=== PATIENT | female | born 1970 | race Caucasian/White ===

== ENCOUNTER 2017-07-24 11:20 | Emergency (ER) | payer BC ==
[2017-07-24 11:31] VITALS: BP 137/78
--- NOTE | 2017-07-24 11:44 | UC ---
Throat Pain/Nasal Marcus HPI - HPI Summary HPI Summary: Pt presents with sore throat and swollen glands since yesterday. She is going out of town in 3 days and wanted to make sure it's not strep. Denies sick contacts, fever, chills, cough, SOB, chest pain, abdominal pain, n/v/d/c. - History of Current Complaint Chief Complaint: UCRespiratory Stated Complaint: SORE THROAT Time Seen by Provider: 07/24/17 11:43 Hx Obtained From: Patient Hx Last Menstrual Period: 07/23 Onset/Duration: Sudden Onset Severity: Moderate Pain Intensity: 5 Pain Scale Used: 0-10 Numeric - Allergies/Home Medications Allergies/Adverse Reactions: Allergies Allergy/AdvReac Type Severity Reaction Status Date / Time Penicillins Allergy Rash Verified 07/24/17 11:32 PMH/Surg Hx/FS Hx/Imm Hx Endocrine History: Diabetes Cardiovascular History: Hypertension Psychological History: Anxiety, Depression - Surgical History Surgical History: Yes Surgery Procedure, Year, and Place: tubal ligation, tubal ablasion - Family History Known Family History: Positive: None - Social History Occupation: Employed Full-time Lives: With Family Alcohol Use: Occasionally Alcohol Amount: socially once a week Substance Use Type: None Smoking Status (MU): Light Every Day Tobacco Smoker Type: Cigarettes Amount Used/How Often: 1/2 PPD Have You Smoked in the Last Year: Yes Review of Systems Constitutional: Negative Skin: Negative Eyes: Negative ENT: Sore Throat Respiratory: Negative Cardiovascular: Negative Gastrointestinal: Negative Neurovascular: Negative Neurological: Negative Psychological: Negative All Other Systems Reviewed And Are Negative: Yes Physical Exam - Summary Physical Exam Summary: GENERAL: NAD. WDWN. No pain distress. SKIN: No rashes, sores, ulcers, masses, lesions. HEENT: Head: AT/NC Eyes: Conjunctiva clear without inflammation or discharge. Ears: Hearing grossly normal. TMs intact, no bulging, erythema, or edema. Nose: Nasal mucosa pink and moist. NTTP maxillary and frontal sinus. Throat: Posterior oropharynx moderate erythema and 2+ tonsillar enlargement. No exudates. Uvula midline. No hoarse voice or muffled voice. NECK: Supple. TTP anterior LAD CHEST: CTAB. No r/r/w. No accessory muscle use. Breathing comfortably and in no distress. CV: RRR. Without m/r/g. Pulses intact. Brisk cap refill. NEURO: Alert. CN II-XII grossly intact. PSYCH: Age appropriate behavior. Triage Information Reviewed: Yes Vital Signs: Initial Vital Signs Temp 98.2 F 07/24/17 11:28 Pulse 76 07/24/17 11:28 Resp 16 07/24/17 11:28 BP 137/78 07/24/17 11:28 Pulse Ox 100 07/24/17 11:28 Throat Pain/Nasal Course/Dx - Course Course Of Treatment: POC strep positive. Azithromycin. - Differential Dx/Diagnosis Provider Diagnoses: Strep pharyngitis Discharge - Sign-Out/Discharge Documenting (check all that apply): Discharge - Discharge Plan Condition: Stable Disposition: HOME Prescriptions: Azithromycin TAB* [Zithromax TAB (Z-MAGDA) 250 mg #6 tabs] 2 tab PO .TODAY, THEN 1 DAILY #1 magda Patient Education Materials: Strep Throat (DC) Forms: *Work Release Referrals: Roxann Gonzalez [employer] [Primary Care Provider] - Additional Instructions: If you develop a fever, shortness of breath, chest pain, new or worsening symptoms - please call your PCP or go to the ED. - Billing Disposition and Condition Condition: STABLE Disposition: HOME
== END 2017-07-24 12:00 | disposition home or self-care (01) ==
LOC: UCEAST 11:20
DX: J02.0 Streptococcal pharyngitis (principal); E11.9 Type 2 diabetes mellitus without complications; Z79.84 Long term (current) use of oral hypoglycemic drugs; I10 Essential (primary) hypertension; F41.9 Anxiety disorder, unspecified; F32.9 Major depressive disorder, single episode, unspecified; Z88.0 Allergy status to penicillin; F17.210 Nicotine dependence, cigarettes, uncomplicated
CPT/HCPCS: 87651; 99212; G0463

== ENCOUNTER 2017-08-19 16:10 | Emergency (ER) | payer BC ==
[2017-08-19 17:01] VITALS: BP 122/80
--- NOTE | 2017-08-19 17:10 | UC ---
Skin Complaint HPI - HPI Summary HPI Summary: 46 yo WF c/o generalized erythematous rash, nonpruritic, x few days. C/o dry skin and a new sugar scrub she used prior to breakout - History of Current Complaint Chief Complaint: UCRash Time Seen by Provider: 08/19/17 16:21 Stated Complaint: RASH Hx Obtained From: Patient Hx Last Menstrual Period: today ?: Yes Onset/Duration: Sudden Onset, Lasting Days Skin Exposure Onset/Duration: Days Ago Onset Severity: Moderate Current Severity: Moderate Pain Intensity: 0 - Allergy/Home Medications Allergies/Adverse Reactions: Allergies Allergy/AdvReac Type Severity Reaction Status Date / Time Penicillins Allergy Rash Verified 08/19/17 16:27 Home Medications: Home Medications Simvastatin 20 mg PO DAILY 08/19/17 [History Confirmed 08/19/17] ValACYclovir (*) [Valtrex 500 mg (*)] 500 mg PO DAILY 08/19/17 [History Confirmed 08/19/17] Review of Systems Constitutional: Negative Skin: Rash Eyes: Negative ENT: Negative Respiratory: Negative Cardiovascular: Negative Gastrointestinal: Negative Genitourinary: Negative Motor: Negative Neurovascular: Negative Musculoskeletal: Negative Neurological: Negative Psychological: Negative All Other Systems Reviewed And Are Negative: Yes PMH/Surg Hx/FS Hx/Imm Hx - Additional Past Medical History Additional PMH: herpes simplex type 2 on Valtrex Previously Healthy: Yes - Surgical History Surgical History: Yes Surgery Procedure, Year, and Place: tubal ligation, tubal ablasion - Family History Known Family History: Positive: None - Social History Alcohol Use: Occasionally Alcohol Amount: socially once a week Substance Use Type: None Smoking Status (MU): Light Every Day Tobacco Smoker Type: Cigarettes Amount Used/How Often: 1/2 PPD Have You Smoked in the Last Year: Yes Physical Exam Triage Information Reviewed: Yes Vital Signs: Initial Vital Signs Temp 36.8 C 08/19/17 16:24 Pulse 69 08/19/17 16:24 Resp 18 08/19/17 16:24 BP 187/101 08/19/17 16:24 Pulse Ox 100 08/19/17 16:24 Eye Exam: Normal ENT Exam: Normal Dental Exam: Normal Neck exam: Normal Neck: Positive: 1 Respiratory Exam: Normal Cardiovascular Exam: Normal Abdominal Exam: Normal Musculoskeletal Exam: Normal Neurological Exam: Normal Psychological Exam: Normal Skin: Positive: rashes, significant lesion(s) - mildy excoriated small 2-3mm raised erythematous lesions on extremities and back deny skin of face abd neck (states it is her baseline) Course/Dx - Course Course Of Treatment: likely allergy to "sugar scrub" pt recently used in setting of icthyosis and dry skin eczema. D/c sugar scrub, use skin emollients and try to d/c valtrex also as it also can cause skin rash - Diagnoses Provider Diagnoses: atopic dermatitis. allergic reaction. HTN Discharge - Sign-Out/Discharge Documenting (check all that apply): Discharge/Admit/Transfer - Discharge Plan Condition: Stable Disposition: HOME Patient Education Materials: Allergies (ED), Allergy Testing (ED) Referrals: Roxann Gonzalez NP [Primary Care Provider] - Additional Instructions: follow up with hydroelectric mechanic if rash worsens in 7-10 days - Billing Disposition and Condition Condition: STABLE Disposition: HOME
== END 2017-08-19 17:05 | disposition home or self-care (01) ==
LOC: UCEAST 16:10
DX: L20.9 Atopic dermatitis, unspecified (principal); L23.89 Allergic contact dermatitis due to other agents; I10 Essential (primary) hypertension; Z88.0 Allergy status to penicillin; F17.210 Nicotine dependence, cigarettes, uncomplicated
CPT/HCPCS: 99211; G0463

== ENCOUNTER 2018-07-26 15:41 | Emergency (ER) | payer BC ==
[2018-07-26 16:12] VITALS: BP 136/81
--- NOTE | 2018-07-26 17:08 | UC ---
Respiratory Complaint HPI - HPI Summary HPI Summary: 47 y/o female presents to the urgent care c/o nasal congestion w/ clear nasal discharge, body aches, dry cough, SUAREZ since yesterday. Pt reports pain is 2/10, she feels tired. 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 Pt has been taken Coricidin PO to alleviate symptoms. Pt denies fever, SOB, chest pain , abdominal pain, N/V/d. - History of Current Complaint Chief Complaint: UCRespiratory Stated Complaint: COUGH Time Seen by Provider: 07/26/18 17:07 Hx Obtained From: Patient Hx Last Menstrual Period: today Onset/Duration: Gradual Onset, Lasting Days - 1 day, Still Present, Worse Since - today Timing: Intermittent Episodes Severity Initially: Mild Severity Currently: Mild Pain Intensity: 3 Pain Scale Used: 0-10 Numeric Character: Cough: Nonproductive Aggravating Factors: Recumbent Position Alleviating Factors: OTC Meds Associated Signs And Symptoms: Positive: Chills, URI, Nasal Congestion - clear. Negative: Wheezing, Dizziness - Risk Factors Pulmonary Embolism Risk Factors: Negative Cardiac Risk Factors: Negative Pseudomonas Risk Factors: Negative Tuberculosis Risk Factors: Negative - Allergies/Home Medications Allergies/Adverse Reactions: Allergies Allergy/AdvReac Type Severity Reaction Status Date / Time Penicillins Allergy Rash Verified 07/26/18 16:12 Home Medications: Home Medications Dextromethorphn/Acetaminoph/Cp [Coricidin Hbp Flu Tablet] 1 tab PO 07/26/18 [ History] PMH/Surg Hx/FS Hx/Imm Hx Previously Healthy: Yes Endocrine History: Diabetes, Dyslipidemia Cardiovascular History: Hypertension - Surgical History Surgical History: Yes Surgery Procedure, Year, and Place: tubal ligation, tubal ablasion - Family History Known Family History: Positive: Hypertension, Diabetes - Social History Occupation: Employed Full-time Alcohol Use: Weekly Alcohol Amount: socially once a week Substance Use Type: None Smoking Status (MU): Light Every Day Tobacco Smoker Type: Cigarettes Amount Used/How Often: 1/2 PPD Have You Smoked in the Last Year: Yes Review of Systems All Other Systems Reviewed And Are Negative: Yes Constitutional: Positive: Chills, Fatigue, Other - body aches Skin: Positive: Negative Eyes: Positive: Negative ENT: Positive: Nasal Discharge - clear, Sinus Congestion Respiratory: Positive: Cough - dry Cardiovascular: Positive: Negative Gastrointestinal: Positive: Negative Genitourinary: Positive: Negative Motor: Positive: Negative Neurovascular: Positive: Negative Musculoskeletal: Positive: Myalgia Neurological: Positive: Headache Psychological: Positive: Negative Is Patient Immunocompromised?: No Physical Exam - Summary Physical Exam Summary: VITAL SIGNS: Reviewed. GENERAL: Patient is a well developed and nourished female who is sitting comfortable in the examining table. Patient is not in any acute respiratory distress. HEAD AND FACE: No signs of trauma. No ecchymosis, hematomas or skull depressions. No sinus tenderness. EYES: PERRLA, EOMI x 2, No injected conjunctiva, no nystagmus. No photophobia. EARS: Hearing grossly intact. Ear canals and tympanic membranes are within normal limits. Nose: edematous and erythematous nasal mucosa w/ clear nasal discharge. MOUTH: Positive no erythema, no tonsillar enlargement. Uvula in midline. NECK: Supple, trachea is midline, Positive anterior cervical lymphadenopathy, no JVD, no carotid bruit, no c-spine tenderness, neck with full ROM. No meningeal signs, no Kernig's or brudzinskis signs. CHEST: Symmetric, no tenderness at palpation LUNGS: Clear to auscultation bilaterally. No wheezing or crackles. CVS: Regular rate and rhythm, S1 and S2 present, no murmurs or gallops appreciated. ABDOMEN: Soft, non-tender. No signs of distention. No rebound no guarding, and no masses palpated. Bowel sounds are normal. EXTREMITIES: FROM in all major joints, no edema, no cyanosis or clubbing. NEURO: Alert and oriented x 3. No acute neurological deficits. Speech is normal and follows commands. SKIN: Dry and warm Triage Information Reviewed: Yes Vital Signs: Initial Vital Signs Temp 100.2 F 07/26/18 16:08 Pulse 88 07/26/18 16:08 Resp 18 07/26/18 16:08 BP 136/81 07/26/18 16:08 Pulse Ox 98 07/26/18 16:08 Respiratory Course/Dx - Course Course Of Treatment: 47 y/o female presents to the urgent care c/o nasal congestion w/ clear nasal discharge, body aches, dry cough, SUAREZ since yesterday. Pt reports pain is 2/10, she feels tired. 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 Pt has been taken Coricidin PO to alleviate symptoms. Pt denies fever, SOB, chest pain , abdominal pain, N/V/d. Hx obtained. Pt w/ URI on examination. Pt w/ temp 100.2. Pt given Ibuprofen PO to alleviate symptoms. Influenza A&B ordered: result: negative. Pt Rx Tessalon PO to alleviate cough. Advised to continue w / Ibuprofen PO, on hand washing. Pt advised to rest, increase fluid intake, eat well and avoid strenuous exercise. If symptoms do not improve or worsen advised to return to the urgent care or f/u with her PCP for further evaluation and treatment. d/C instructions explained. Pt understood and agreed with plan of care. - Differential Dx/Diagnosis Differential Diagnosis/HQI/PQRI: Asthma, Bronchitis, Laryngitis, Lower Resp Infection, Sinusitis, Tuberculosis Provider Diagnosis: Upper respiratory infection, Cough Discharge - Sign-Out/Discharge Documenting (check all that apply): Patient Departure - D/c home All imaging exams completed and their final reports reviewed: No Studies - Discharge Plan Condition: Stable Disposition: HOME Prescriptions: Benzonatate CAP* [Tessalon 100 MG CAP*] 100 mg PO TID PRN #21 cap PRN Reason: Cough Patient Education Materials: Upper Respiratory Infection (ED) Referrals: Roxann Gonzalez NP [Primary Care Provider] - 3 Days Additional Instructions: 1-Please continue taking ibuprofen PO q6-8hrs prn as instructed after meals to alleviate fever and pain. Increase fluid intake, eat well, rest and avoid strenuous exercise 2- Take Tessalon tabs PO to alleviate cough. 3-If symptoms do not improve or worsen please return to the urgent care or f/u with your PCP in 3 days for further evaluation and treatment. - Billing Disposition and Condition Condition: STABLE Disposition: Home
[2018-07-26] MEDS ORDERED: Ibuprofen TAB* 400 MG PO ONE (17:16)
[2018-07-26 17:29] LABS: Influenza A Molecular NEGATIVE (Negative); Influenza B Molecular NEGATIVE (Negative)
== END 2018-07-26 17:51 | disposition home or self-care (01) ==
LOC: UCEAST 15:41
DX: R05 Cough (principal); J06.9 Acute upper respiratory infection, unspecified; E11.9 Type 2 diabetes mellitus without complications; I10 Essential (primary) hypertension; F17.210 Nicotine dependence, cigarettes, uncomplicated
CPT/HCPCS: 99212; A9270-GY; G0463

== ENCOUNTER 2018-09-20 10:32 | Emergency (ER) | payer BC ==
[2018-09-20 11:22] VITALS: BP 129/84
--- NOTE | 2018-09-20 13:01 | UC ---
Skin Complaint HPI - HPI Summary HPI Summary: 47 y/o female presents to the urgent care c/o Pt was bitten by an insect yesterday morning in two places. R elbow is red, swollen, hot to the touch - pt states infection is spreading. R knee site is red and swollen/ not painful. Pt worried about concurrent sore throat. - History of Current Complaint Chief Complaint: UCSkin Time Seen by Provider: 09/20/18 12:51 Stated Complaint: INSECT BITE Hx Obtained From: Patient Hx Last Menstrual Period: 09/08/18 ?: No Onset/Duration: Sudden Onset, Lasting Days - 1 day, Still Present, Worse Since - this morning Skin Exposure Onset/Duration: Days Ago - 1 day Timing: Constant Onset Severity: Mild Current Severity: Moderate Pain Intensity: 1 Pain Scale Used: 0-10 Numeric Location: Discrete - medial aspect of her Rt elbow and medail aspect proxiamal Rt lower leg Character: Redness, Raised Alleviating Factor(s): Nothing Associated Signs & Symptoms: Positive: Rash - red rash s/p insect bite in the RT elebow and Rt lower leg. Negative: Fever, Chills Related History: Possible Reaction to: Insect - Allergy/Home Medications Allergies/Adverse Reactions: Allergies Allergy/AdvReac Type Severity Reaction Status Date / Time Penicillins Allergy Rash Verified 09/20/18 11:12 PMH/Surg Hx/FS Hx/Imm Hx Previously Healthy: Yes Endocrine History: Diabetes Cardiovascular History: Hypertension - Surgical History Surgical History: Yes Surgery Procedure, Year, and Place: tubal ligation, tubal ablasion - Family History Known Family History: Positive: Hypertension, Diabetes - Social History Occupation: Employed Full-time Lives: With Family Alcohol Use: Weekly Alcohol Amount: socially once a week Substance Use Type: None Smoking Status (MU): Light Every Day Tobacco Smoker Type: Cigarettes Amount Used/How Often: less 1/2 PPD Have You Smoked in the Last Year: Yes Household Exposure Type: Cigarettes Review of Systems All Other Systems Reviewed And Are Negative: Yes Constitutional: Positive: Negative Skin: Positive: Rash - Rt elbow and RT lower leg red rash s/p insect bite ENT: Positive: Sore Throat Respiratory: Positive: Negative Cardiovascular: Positive: Negative Gastrointestinal: Positive: Negative Genitourinary: Positive: Negative Motor: Positive: Negative Neurovascular: Positive: Negative Musculoskeletal: Positive: Negative Neurological: Positive: Negative Psychological: Positive: Negative Is Patient Immunocompromised?: No Physical Exam - Summary Physical Exam Summary: Vital Signs Reviewed: Yes General: well appearing, well nourished obese female in no acute apparent pain distress, sitting comfortably on examining table Eye Exam: Normal Eyes: Positive: Conjunctiva Clear - PERRLA, EOMI, fundi grossly normal ENT: Positive: Normal ENT inspection, Hearing grossly normal, Pharynx mild erythema w/o any exudate. B/l tonsils WNL and no exudate. TMs normal Neck: Positive: Supple, Nontender, No Lymphadenopathy Respiratory: Positive: Chest non-tender, Lungs clear, Normal breath sounds, No respiratory distress Cardiovascular: Positive: RRR, No Murmur, Pulses Normal, Brisk Capillary Refill Abdomen Description: Positive: Nontender, No Organomegaly, Soft. Negative: CVA Tenderness (R), CVA Tenderness (L) Bowel Sounds: Positive: Present Musculoskeletal: Positive: Strength Intact, ROM Intact, No Edema Neurological: Positive: Alert, Muscle Tone Normal Psychological Exam: Normal Skin: Positive: Positive erythematous patch w/ indistinct borders, warm and tender to palpation, no drainage observed. pulses WNL, capillary refill brisk, sensation WNL. Triage Information Reviewed: Yes Vital Signs: Initial Vital Signs Temp 97.8 F 09/20/18 11:15 Pulse 66 09/20/18 11:15 Resp 18 09/20/18 11:15 BP 129/84 09/20/18 11:15 Pulse Ox 99 09/20/18 11:15 Course/Dx - Course Course Of Treatment: 1-Please take full course of Antibiotic. 2- If redness and swelling doubles in size beyond what was demarcated after 48 hrs of taking antibiotic and fever develops please go to the ER immediately. 3-Avoid standing for long periods of time or flexing your foot, keep it elevated and keep wound clean and dry. 4-Please F/u with your PCP in 2 days for further evaluation and treatment. - Differential Diagnoses - Skin Complaint Differential Diagnoses: Abscess, Cellulitis, Contact Dermatitis, Local Allergic Reaction, MRSA, Urticaria - Diagnoses Provider Diagnosis: Cellulitis of right elbow, Cellulitis of right leg Discharge - Sign-Out/Discharge Documenting (check all that apply): Patient Departure - d/C home All imaging exams completed and their final reports reviewed: No Studies - Discharge Plan Condition: Stable Disposition: HOME Prescriptions: Bacitracin OINTMENT* 1 applic TOPICAL BID #1 tube diPHENhydraMINE PO* [Benadryl PO 25 MG TAB*] 25 mg PO TID PRN #30 tab PRN Reason: pruritus DOXYcycline CAP(*) [DOXYcycline 100MG CAP(*)] 100 mg PO BID #20 cap Patient Education Materials: Cellulitis (ED) Referrals: Roxann Gonzalez [employer] [Primary Care Provider] - 3 Days Additional Instructions: 1-Please take full course of Antibiotic. Take yogurts w/ probiotics or Culturelle to protect your GI system. 2- If redness and swelling doubles in size beyond what was demarcated after 48 hrs of taking antibiotic and fever develops please go to the ER immediately. 3-Avoid standing for long periods of time or flexing your leg or elbow, keep it elevated and keep rash clean and dry. Apply Bacitracin oint as directed . 4- Take Benadryl PO as directed to alleviate itchiness. 5-Please F/u with your PCP in 3 days if not improvement of symptoms for further evaluation and treatment. 6- Rapid Strep was negative - Billing Disposition and Condition Condition: STABLE Disposition: Home
== END 2018-09-20 13:52 | disposition home or self-care (01) ==
LOC: UCEAST 10:32
DX: L03.113 Cellulitis of right upper limb (principal); L03.115 Cellulitis of right lower limb; J02.9 Acute pharyngitis, unspecified; I10 Essential (primary) hypertension; E11.9 Type 2 diabetes mellitus without complications; F17.210 Nicotine dependence, cigarettes, uncomplicated; Z88.0 Allergy status to penicillin
CPT/HCPCS: 87651; 99212; G0463